=== PATIENT | female | born 2005 | race Caucasian/White ===

== ENCOUNTER 2023-02-19 17:06 | Emergency (ER) | payer OTHER, SELFPAY ==
[2023-02-19 17:17] VITALS: BP 117/75; PULSE 78; RESP 18; TEMP 37.2; O2SAT 99
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
[2023-02-19 17:33] VITALS: BP 117/75; PULSE 78; RESP 18; TEMP 37.2; O2SAT 99
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
[2023-02-19 19:00] VITALS: BP 98/70; PULSE 56; RESP 16; O2SAT 99
[2023-02-19] MEDS: Ibuprofen 800 MG TAB (19:00)
== END 2023-02-19 19:07 | disposition home or self-care (01) ==
PROVIDERS: Emergency Provider Student in an Organized Health Care Education/Training Program
DX: R51.9 Headache, unspecified (principal); S06.0XAA Concussion with loss of consciousness status unknown, initial encounter; S02.2XXA Fracture of nasal bones, initial encounter for closed fracture; W51.XXXA Accidental striking against or bumped into by another person, initial encounter; Y93.67 Activity, basketball
CPT/HCPCS: 81025; 99284; 70450; 70486; 99283